=== PATIENT | male | born 1950 ===

== ENCOUNTER 2020-10-11 10:50 | Day surgery (SDC) | payer OTHER ==
[~2020-10-11 10:50] MED LIST: HORIZANT300 MG PO; LOSARTAN POTASS25 MG PO
[2020-10-11] MEDS ORDERED: KEFLEX750 MG PO (15:26)
[2020-10-11] MEDS ORDERED: PERCOCET 5-3251 EACH PO (15:27)
== END 2020-10-11 18:40 | disposition home or self-care (01) ==
LOC: CIR.AMB 10:50
PROVIDERS: ATTEND Surgery
DX: T83.61XS Infection and inflammatory reaction due to implanted penile prosthesis, sequela (principal); Z20.822 Contact with and (suspected) exposure to COVID-19
CPT/HCPCS: 54405; C1813